=== PATIENT | male | born 1955 | race Caucasian/White ===

== ENCOUNTER 2022-03-25 09:00 | Outpatient (CLI) | payer MEDICARE | END 2022-03-25 09:01 | disposition home or self-care (01) | LOC: CSHCT 09:00 | PROVIDERS: ATTEND Student in an Organized Health Care Education/Training Program | DX: R22.1 Localized swelling, mass and lump, neck (principal); J35.1 Hypertrophy of tonsils | CPT/HCPCS: 70491; 82565 ==

== ENCOUNTER 2022-09-02 12:26 | Outpatient (CLI) | payer MEDICARE ==
[~2022-09-02 12:26] MED LIST: Iopamidol 300 61% 100 ML VIAL FS ONE; Magnevist 469MG/ML 20 ML VIAL ONE
== END 2022-09-02 12:27 | disposition home or self-care (01) ==
LOC: CSHMRI 12:26
PROVIDERS: ATTEND Radiology Radiation Oncology
DX: R22.1 Localized swelling, mass and lump, neck (principal); C79.9 Secondary malignant neoplasm of unspecified site; Z98.890 Other specified postprocedural states; R94.02 Abnormal brain scan; J34.89 Other specified disorders of nose and nasal sinuses
CPT/HCPCS: 70491; 70553; 82565